=== PATIENT | female | born 1950 | race Caucasian/White ===

== ENCOUNTER 2023-12-17 15:12 | Day surgery (SDC) | payer MEDICARE ==
[2023-12-17] MEDS ORDERED: LIDOCAINE HCL 1% 50 MG/5 ML VL PF IJ ONE (15:13)
[2023-12-17] MEDS ORDERED: Depo-Medrol 40 MG/ML IM ONE (15:13)
[2023-12-17] MEDS ORDERED: BUPIVACAINE 0.5% VIAL IJ ONE (15:13)
--- NOTE | 2023-12-17 17:35 | XRAY ---
Indication: Left SI joint injection. Intraoperative fluoroscopy provided for 13 seconds. Single digital spot image submitted for interpretation demonstrates posterior needle tip projecting over left SI joint. Small amount of contrast injected for needle tip placement. Correlate with intraoperative findings/report.
--- NOTE | 2023-12-18 09:49 | XRAY ---
13 seconds of fluoroscopy was used in surgery for a left sacroiliac joint injection.
== END 2023-12-17 16:54 | disposition home or self-care (01) ==
LOC: SDC-PAIN 15:12
PROVIDERS: ATTEND Psychiatry & Neurology Pain Medicine
DX: M46.1 Sacroiliitis, not elsewhere classified (principal); E11.9 Type 2 diabetes mellitus without complications
CPT/HCPCS: 27096; 72170; 77002; 82947; G0260; J2001; Q9966